=== PATIENT | female | born 1960 | race Caucasian/White ===

== ENCOUNTER 2016-09-21 00:54 | Emergency (ER) | payer BC ==
[~2016-09-21] VITALS: Ht 165.1 cm; Wt 47.6 kg
--- NOTE | 2016-09-21 01:15 | NUR ---
TO BED 21 A 56 YO FEMAL BIBSELF PRESENTS WITH CC OF FOREIGN OBJECT IN VAGINA THAT OCCURED AT 2200, DENIES OF ANY PAIN, NO DISCHARGES. VSS. INITIATED COMFORT MEASURES. AWAITING FOR ER MD DE LA VEGA.
--- NOTE | 2016-09-21 01:30 | NUR ---
Dr Curran at bedside for pelvic exam, foreign body removed. Patient spencer procedure well.
--- NOTE | 2016-09-21 01:40 | NUR ---
Patient discharged to home in stable condition. Written and verbal after care instructions given. Patient verbalizes understanding of instruction. Patient is ambulatory with steady gait, no further complaints.
[2016-09-21 01:41] VITALS: BP 139/78
== END 2016-09-21 01:42 | disposition home or self-care (01) ==
LOC: ER 00:54
DX: T19.2XXA Foreign body in vulva and vagina, initial encounter (principal); N80.9 Endometriosis, unspecified; Z98.890 Other specified postprocedural states; Z88.5 Allergy status to narcotic agent; Z88.6 Allergy status to analgesic agent; X58.XXXA Exposure to other specified factors, initial encounter; Y93.89 Activity, other specified; Y92.89 Other specified places as the place of occurrence of the external cause; Y99.9 Unspecified external cause status
CPT/HCPCS: A4606; Z7610